=== PATIENT | female | born 1945 | race Caucasian/White ===

== ENCOUNTER 2016-10-13 09:02 | Emergency (ER) | payer OTHER, MEDICARE ==
[~2016-10-13] VITALS: Ht 160 cm; Wt 81.6 kg
[~2016-10-13 09:02] MED LIST: AMOXICILLIN500 MG PO; CRESTOR 10MG10 MG PO; DIOVAN HCT 12.51 TA1 PO; DIOVAN HCT 12.51 TAB PO; IBANDRONATE SO150 MG PO
--- NOTE | 2016-10-13 09:36 | ED ANKLE/FOOT INJURY COMPLAINT ---
History of Present Illness General Chief Complaint: Laceration Procedure Stated Complaint: LAC TO LT ANKLE (ON ELOQUIST) Source: patient Exam Limitations: no limitations Vital Signs & Intake/Output Vital Signs & Intake/Output Vital Signs Date Time Temp Pulse Resp B/P Pulse O2 O2 Flow FiO2 Ox Delivery Rate 10/13 1049 76 136/85 10/13 0918 95.4 84 20 165/88 99 Room Air Allergies Coded Allergies: MDX - Amoxicillin (From AUGMENTIN) (VIOLENT GI UPSET 05/11/11) MDX - Clavulanic Acid (From AUGMENTIN) (VIOLENT GI UPSET 05/11/11) MDX - Poison Rafat Extract, Alum Prec (POISON RAFAT EXTRACT, ALUM PRECIPITAT) (PT GETS BLISTERS AND OOZES 09/28/14) Reconcile Medications Amoxicillin 500 MG CAPSULE 4 PO AD DENTAL APPTS (Reported) Hydrochlorothiazide/Valsarta (Diovan Hct 12.5 MG-160 MG) 1 TAB TAB 1 TAB PO DAILY BP (Reported) Ibandronate Sodium 150 MG TABLET 1 TAB PO Q30D BONES (Reported) Rosuvastatin Calcium (Crestor) 10 MG TABLET 1 TAB PO DAILY CHOLESTEROL ( Reported) Triage Note: 2 INCH LACERATION TO LEFT INFERIOR ANKLE, DROPPED A KETCHUP BOTTLE ON IT. PT IS ON ELOQUIST. BLEEDING CONTROLLED, DSD APPLIED. Triage Nurses Notes Reviewed? yes Occurred: just prior to arrival Duration: hour(s):, constant, continues in ED Timing: recent history Severity: moderate, severe Pain/Injury Location: Left: Ankle. Method of Injury: laceration No Modifying Factors: none HPI: 71-year-old female comes into emergency room for further evaluation of laceration to left ankle. Patient reports that she cut it on a ketchup bottle at home. Some associated bleeding. Patient thinks that she got her last tetanus shot here. Mild throbbing pain. Continuous. Patient is on eliquis for a flutter/arrhythmia. Denies any other associated symptoms or trauma. (PAM OSBORNE) Past History Travel History Traveled to [place] past 21 day No Medical History Any Pertinent Medical History? see below for history Neurological: NONE EENT: NONE Cardiovascular: hypertension, hyperlipidemia Respiratory: NONE Gastrointestinal: NONE Hepatic: NONE Renal: NONE Musculoskeletal: osteoporosis Psychiatric: NONE Endocrine: NONE Blood Disorders: NONE Cancer(s): NONE Tetanus Vaccine: Surgical History Surgical History: non-contributory Psychosocial History What is your primary language Cambodian Tobacco Use: Never used ETOH Use: occasional use Family History Hx Contributory? No (PAM OSBORNE) Review of Systems Review of Systems Constitutional: Reports: no symptoms. EENTM: Reports: no symptoms. Respiratory: Reports: no symptoms. Cardiovascular: Reports: no symptoms. GI: Reports: no symptoms. Genitourinary: Reports: no symptoms. Musculoskeletal: Reports: see HPI. Skin: Reports: see HPI. Neurological/Psychological: Reports: no symptoms. Hematologic/Endocrine: Reports: no symptoms. Immunologic/Allergic: Reports: no symptoms. All Other Systems: Reviewed and Negative (PAM OSBORNE) Physical Exam Physical Exam General Appearance: well developed/nourished, mild distress Head: atraumatic Eyes: Bilateral: normal appearance. Ears, Nose, Throat: normal ENT inspection, hearing grossly normal Neck: normal inspection Cardiovascular/Respiratory: no respiratory distress Back: normal inspection Leg/Knee/Thigh Left: normal range of motion Ankle Left: 3 cm laceration Neuro/Vascular: normal motor function, normal sensation, pulses intact Tendon: normal tendon function Psychiatric: awake, alert, oriented x 3 Skin: intact, normal color, warm/dry (PAM OSBORNE) Progress Differential Diagnosis: fracture, dislocation, sprain, contusion, compartmental syndrome Plan of Care: 10/13/2016 11:18:16 AM Patient clinically looks well. Nontoxic-appearing. Patient tolerated procedure. Return if any other concerns worsening symptoms. (PAM OSBORNE) Departure Departure Disposition: HOME OR SELF CARE Condition: Stable Clinical Impression Primary Impression: Laceration of left ankle Referrals: FRANCK LANE,KEVIN Gifford III (PCP/Family) Additional Instructions: Return in 10 days for suture removal. Keep covered with bacitracin and dry dressing. Watch for signs of infection such as redness on discharge fever or chills. Please go over all results of today's visit with your primary care doctor. Contact your primary care doctor to let them know you were here in the emergency room. There may be nonspecific findings which may not be related to your visit today here in the emergency room but may require further evaluation and chronic monitoring by your primary care doctor. If you had a laceration today the chance of foreign body always remains. You should follow-up with your primary care doctor for recheck in 3-5 days for a wound check. If you had an x-ray done there is a chance that a fracture could have been missed on initial read and you should follow-up with your primary care doctor for repeat x-rays if symptoms persist. If your blood pressure was elevated here in the emergency room please have rechecked by her primary care doctor within the next 48 hours by your primary care doctor. If you were prescribed a narcotic here in the emergency room or any type of controlled substances you're not allowed to drive while taking this medication or operate any type of heavy machinery. Narcotics can make you feel lightheaded dizziness nausea and can cause constipation. You may need to pick up attendant a stool softener. Thank you for choosing [facility] emergency room. Please return to the emergency room immediately if you have any other concerns worsening of symptoms. Departure Forms: Customer Survey General Discharge Information (PAM OSBORNE) PA/MOLDER SHOULDER PAD Co-Sign Statement Statement: ED Attending supervision documentation- [] I saw and evaluated the patient. I have also reviewed all the pertinent lab results and diagnostic results. I agree with the findings and the plan of care as documented in the PA's/MOLDER SHOULDER PAD's documentation. [X] I have reviewed the ED Record and agree with the PA's/MOLDER SHOULDER PAD's documentation. [] Additions or exceptions (if any) to the PAs/MOLDER SHOULDER PAD's note and plan are summarized below: [] (KAT LANE,REG) Procedures Laceration/Wound Repair Progress: 3 cm laceration, left medial malleolus, gaping, Betadine prep, 1% lidocaine with epi, 4 mL, irrigated with copious amounts of saline, 4. 0 nylon, 6 sutures placed total with one mattress, bacitracin and dry sterile dressing placed, patient tolerated procedure well Performed by PA student with my supervision (PAM OSBORNE)
[2016-10-13 10:49] VITALS: BP 136/85
== END 2016-10-13 10:49 ==
LOC: ERH 09:02
DX: S91.012A Laceration without foreign body, left ankle, initial encounter (principal); W26.8XXA Contact with other sharp object(s), not elsewhere classified, initial encounter; Y93.9 Activity, unspecified; Y92.009 Unspecified place in unspecified non-institutional (private) residence as the place of occurrence of the external cause